=== PATIENT | female | born 1940 ===

== ENCOUNTER → 2018-12-02 18:40 | Outpatient (REF) | payer MEDICARE, SELFPAY ==
[2018-12-02 19:29] LABS: Erythrocyte Sedimentation Rate 19 MM/HR (0-20)
== END ==
LOC: LAB 18:40
PROVIDERS: Visit Provider Specialist
DX: M81.0 Age-related osteoporosis without current pathological fracture (principal); K21.9 Gastro-esophageal reflux disease without esophagitis; R73.01 Impaired fasting glucose; R63.4 Abnormal weight loss
CPT/HCPCS: 85651